=== PATIENT | female | born 1985 | race Caucasian/White ===

== ENCOUNTER 2017-12-10 22:14 | Inpatient (IN) | payer OTHER ==
[~2017-12-10 22:14] MED LIST: Bupivacaine/Epinephrine 0.25% 30 ML VIAL ONE
[2017-12-10 22:43] VITALS: BMI 34.2
[2017-12-10] MEDS ORDERED: Promethazine HCl 25 MG/ML VIAL IM PRN (23:39)
[2017-12-10] MEDS ORDERED: Ondansetron HCl/PF 4 MG/2 ML Vial IVP PRN (23:39)
[2017-12-10] MEDS ORDERED: Acetaminophen 500 MG TAB PO PRN (23:39)
[2017-12-10] MEDS ORDERED: NS / Oxytocin 40 units/1000ml 1,000 ML IV SCH (23:45)
[2017-12-10] MEDS ORDERED: Lidocaine 1% (PF) 30 ML VIAL SC PRN (23:45)
[2017-12-10] MEDS ORDERED: NS w/ Oxytocin 10 units 500 ML IV SCH ×2 (23:45)
[2017-12-10] MEDS ORDERED: Misoprostol 100 MCG TAB PO SCH (23:45)
[2017-12-10] MEDS ORDERED: Misoprostol 200 MCG TAB RC PRN (23:45)
[2017-12-10] MEDS ORDERED: Penicillin G Potassium 5 MILL.UNITS in Sodium Chloride 0.9% 100 ML IVPB SCH (23:45)
[2017-12-10] MEDS ORDERED: Ibuprofen 800 MG TAB PO PRN (23:45)
[2017-12-10 23:56] LABS: Hemoglobin 12.8 g/dL (12.0-16.0); Mean Corpuscular HGB CONC 34.8 g/dL (32.0-36.0); Mean Corpuscular Hemoglobin 29.9 pg (27.0-31.0); Mean Platelet Volume 6.7 fL (7.4-10.4); Platelet Count 202 thou/uL (130-400); RBC Distribution Width 12.6 % (11.5-14.5); Red Blood Cell (RBC) Count 4.29 mill/uL (4.20-5.40); White Blood Cell (WBC) Count 8.4 thou/uL (4.8-10.8)
[2017-12-11 00:37] LABS: Syphilis Antibody Nonreactive (Nonreactive); Syphilis Antibody Index 0.05 S/CO (<1.00 Non-Reactive)
[2017-12-11 00:45] LABS: HBSAg Index 0.17 S/CO (0-0.99); Hep B Surf Ag Non-Reactive S/CO (NonReactive)
[2017-12-11] MEDS: Penicillin G 2.5 MILL.units 2.5 MILL.UNITS in Premix Bag 1 BAG IVPB SCH ×7 (00:55→20:10)
[2017-12-11] MEDS: Lactated Ringer's 1,000 ML IV SCH ×3 (01:33→12:05)
[2017-12-11] MEDS: Butorphanol Tartrate 1 MG/ML VIAL SLOW IVP PRN ×3 (04:33→10:18)
[2017-12-11] MEDS ORDERED: Misoprostol 100 MCG TAB ONE (05:32)
[2017-12-11] MEDS ORDERED: Misoprostol 100 MCG TAB PO SCH (05:45)
[2017-12-11] MEDS ORDERED: NS w/ Oxytocin 10 units 500 ML IV SCH (08:00)
--- NOTE | 2017-12-11 08:02 | PDOC.LDHP ---
Labor and Delivery H&P Chief complaint: loss of fluid HPI: Pt is a 32yo G1@ 38+ weeks here for PROM. Current gestational age (weeks): 38 Due date: 12/21/17 Grav: 1 Para: 0 Current complications: none Abnormal US findings: No Current medications: pre-christofer vitamins Previous surgical history: none Allergies/Adverse Reactions: Allergies Allergy/AdvReac Type Severity Reaction Status Date / Time No Known Allergies Allergy Unverified 12/10/17 22:35 Social history: none - Physical Exam Vital signs reviewed and normal: yes General: resting Heart: RRR Lungs: CTAB Abdomen: gravid Extremeties: no edema FHT: category 1 - Vaginal Exam Effacement: 90% Station: -2 - OB Labs Blood type: O RH: positive Antibody Screen: negative HIV: negative RPR: negative HEPSAg: negative 1 hour GCT: negative 3 hour GTT: WNL GBS: positive Urine drug screen: not done Rubella: immune - Assessment L&D Assessment: term rupture in membranes - Plan Plan: admit to L&D, labor augmentation if indicated, GBS antibiotic prophylaxis , informed consent obtained, anesthesia consult for pain management -: 32yo @ 38+ weeks w PROM, GBS positive. Cytotec x 2 doses, PCN given. Continue plan of care.
[2017-12-11] MEDS ORDERED: DISCONTINUE ALL PREVIOUS NARCOTICS FS SCH (11:00)
[2017-12-11] MEDS ORDERED: Lidocaine HCl/Epinephrine 5 ML AMPUL IJ ONE (11:23)
[2017-12-11] MEDS: Bupivacaine 0.75% 13.4 ML, fentaNYL Citrate/PF 400 MCG in Sodium Chloride 0.9% 78.6 ML EPIDURAL SCH ×2 (12:02→17:34)
[2017-12-11] MEDS ORDERED: Ondansetron HCl/PF 4 MG/2 ML Vial IVP PRN ×2 (12:06→23:12)
[2017-12-11] MEDS ORDERED: Lactated Ringer's 500 ML IV PRN (12:06)
[2017-12-11] MEDS ORDERED: Promethazine HCl 25 MG/ML VIAL IM PRN (12:06)
[2017-12-11] MEDS ORDERED: Acetaminophen 325 MG TAB PO PRN (12:06)
[2017-12-11] MEDS ORDERED: Eucerin (Mineral Oil/Petrolatum,White) 30 gm Jar TOP PRN (12:06)
[2017-12-11] MEDS ORDERED: diphenhydrAMINE 50 MG/ML VIAL IVP PRN (12:06)
[2017-12-11] MEDS ORDERED: Naloxone HCl 0.4 mg/ml Vial IVP PRN ×2 (12:06)
[2017-12-11] MEDS ORDERED: ePHEDrine/0.9% NaCl/PF SYRINGE 50 mg/10 ml SLOW IVP PRN (12:06)
[2017-12-11] MEDS ORDERED: Communication Order-Pharmacy FS SCH (12:15)
[2017-12-11] MEDS ORDERED: fentaNYL Citrate/PF 400 MCG, Bupivacaine 0.5% 20 ML in Sodium Chloride 0.9% 72 ML EPIDURAL SCH (12:15)
--- NOTE | 2017-12-11 13:58 | PDOC.LDPN ---
Labor & Delivery Progress Note - Subjective Subjective: comfortable - Objective Vital signs reviewed and normal: yes General: resting Dilation: 4 Effacement: 90% Station: -2 FHT: category 1, late decelerations (noted after epidural, resolved w resuscitative measures) - Assessment (1) 38 weeks gestation of Code(s): Z3A.38 - 38 WEEKS GESTATION OF Current Visit: Yes Status : Acute Plan: continue plan of care
[2017-12-11] MEDS ORDERED: Misoprostol 200 MCG TAB ONE (21:15)
--- NOTE | 2017-12-11 21:34 | PDOC.OPDEL ---
OB Operative/Delivery Note Delivery Dr/Surgeon: Dinesh Pre-Delivery Diagnosis: ruptured membrane Procedure/Post Delivery Dx: spontaneous vaginal delivery Weeks gestation: 38 Anesthesia: epidural - Findings A Sex: male - 1 min: 8 - 5 min: 9 - Additional Findings/Plan Placenta delivered: spontaneous Repaired Obstetrical Laceration: 1st degree (and bilateral labial laceration) Estimated blood loss: quant loss approx 800m Compilations/Other Findings: uterine atony, relieved w massage, pitocin and cytotec 1gm, fundus firms and lochia WNL after repair Post delivery plan: routine recovery
[2017-12-11] MEDS ORDERED: Misoprostol 100 MCG TAB VAG SCH (21:45)
[2017-12-11] MEDS ORDERED: Preparation H Ointment 28 GM TUBE PR PRN (23:12)
[2017-12-11] MEDS ORDERED: Milk Of Magnesia 30 ML UDCUP PO PRN (23:12)
[2017-12-11] MEDS ORDERED: Bisacodyl 10 MG SUPP PR PRN (23:12)
[2017-12-11] MEDS ORDERED: Acetaminophen/Codeine 30-300mg Tablet PO PRN ×2 (23:12)
[2017-12-11] MEDS ORDERED: Benzocaine/Menthol 20-0.5% 60 ML CAN TOP PRN (23:12)
[2017-12-11] MEDS ORDERED: diphenhydrAMINE 25 MG CAP PO PRN (23:12)
[2017-12-11] MEDS ORDERED: Lanolin Ointment 7 GM TUBE TOP PRN (23:12)
[2017-12-11] MEDS ORDERED: NS / Oxytocin 40 units/1000ml 1,000 ML IV SCH (23:12)
[2017-12-11] MEDS ORDERED: Ibuprofen 800 MG TAB PO SCH (23:30)
[2017-12-12] MEDS: Ibuprofen 800 MG TAB PO SCH ×3 (05:07→21:00)
[2017-12-12 06:15] LABS: Hemoglobin 11.2 g/dL (12.0-16.0); Mean Corpuscular HGB CONC 35.2 g/dL (32.0-36.0); Mean Corpuscular Hemoglobin 30.5 pg (27.0-31.0); Mean Corpuscular Volume 86.5 fL (78.0-98.0); Mean Platelet Volume 6.5 fL (7.4-10.4); Platelet Count 161 thou/uL (130-400); RBC Distribution Width 12.7 % (11.5-14.5); Red Blood Cell (RBC) Count 3.66 mill/uL (4.20-5.40); White Blood Cell (WBC) Count 12.2 thou/uL (4.8-10.8)
--- NOTE | 2017-12-12 08:12 | PDOC.PP ---
Post Progress Note Post Day #: 1 Subjective: doing well,nursing, min lochia PO intake tolerated: yes Flatus: yes Ambulation: yes Vital Signs (12 hours) Temp Pulse Resp BP 12/12/17 07:25 98.0 F 81 20 12/12/17 04:30 98.0 F 81 20 122/59 L 12/12/17 00:30 98.9 F 82 18 109/56 L Weight Weight 206 lb - Physical Examination General: NAD Respiratory: non-labored breathing Abdominal: lochia (normal), no distention Fundus firm & at: below umb Extremities: negative homans (B) Skin: no rash Neurological: no gross focal deficits Psychiatric: A&Ox3, normal affect Result Diagrams: 12/12/17 06:00 Additional Labs: Post Labs Blood Type O POSITIVE 12/10/17 23:44 Hep Bs Antigen Non-Reactive S/CO (NonReactive) 12/10/17 23:44 (1) 38 weeks gestation of Code(s): Z3A.38 - 38 WEEKS GESTATION OF Status: Acute - Assessment/Plan PPD1 sp w EBL 800ml/uterine atony but hgb this AM 11 and normal PP lochia. Anticipate DC tomorrow.
[2017-12-12] MEDS: Ferrous Sulfate 325 MG TAB PO SCH ×2 (08:34→16:46)
[2017-12-12] MEDS: Docusate Calcium (SURFAK) 240 MG CAP PO SCH ×2 (08:34→20:59)
[2017-12-12] MEDS: Prenatal Vitamin 1 TAB PO SCH (08:34)
[2017-12-12] MEDS ORDERED: Adacel (T-DAP) 0.5 ML VIAL IM ONE (09:00)
[2017-12-13] MEDS: Ibuprofen 800 MG TAB PO SCH ×2 (05:53→13:59)
[2017-12-13 08:13] VITALS: BP 108/65; TEMP 97.9
--- NOTE | 2017-12-13 08:39 | PDOC.PP ---
Post Progress Note Post Day #: 2 Subjective: nursing well, no concerns PO intake tolerated: yes Flatus: yes Ambulation: yes Vital Signs (12 hours) Temp Pulse Resp BP 12/13/17 08:00 97.9 F 71 18 108/65 12/13/17 07:50 97.9 F 71 18 Weight Weight 206 lb - Physical Examination General: NAD Respiratory: non-labored breathing Abdominal: no distention Extremities: negative homans (B) Skin: no rash Neurological: no gross focal deficits Psychiatric: A&Ox3, normal affect Result Diagrams: 12/12/17 06:00 Additional Labs: Post Labs Blood Type O POSITIVE 12/10/17 23:44 Hep Bs Antigen Non-Reactive S/CO (NonReactive) 12/10/17 23:44 (1) 38 weeks gestation of Code(s): Z3A.38 - 38 WEEKS GESTATION OF Status: Acute - Assessment/Plan PPD2 doing well, plan for DC today.
[2017-12-13] MEDS: Ferrous Sulfate 325 MG TAB PO SCH (09:03)
[2017-12-13] MEDS: Prenatal Vitamin 1 TAB PO SCH (09:51)
[2017-12-13] MEDS: Docusate Calcium (SURFAK) 240 MG CAP PO SCH (09:51)
== END 2017-12-13 16:30 | disposition home or self-care (01) | DRG 775 ==
LOC: L&D/OP 22:14 → L&D 23:33 → 3SW 12-12 00:16
PROVIDERS: ADMIT Obstetrics & Gynecology; ATTEND Obstetrics & Gynecology
PROC: 10E0XZZ Delivery of Products of Conception, External Approach (ICD-10-PCS; principal; 2017-12-11)
PROC: 0HQ9XZZ Repair Perineum Skin, External Approach (ICD-10-PCS; 2017-12-11)
DX: O70.0 First degree perineal laceration during delivery (principal); O99.824 Streptococcus B carrier state complicating childbirth; Z3A.38 38 weeks gestation of pregnancy; Z37.0 Single live birth; O75.89 Other specified complications of labor and delivery
CPT/HCPCS: 36415; 51702; 85027; 86780; 86850; 86900; 86901; 87340; 99285; J0595; J2540; J3010; J3490; J7050

== ENCOUNTER 2020-06-19 08:25 | Outpatient (CLI) | payer OTHER ==
[2020-06-19 18:22] LABS: SARS-CoV-2 PCR by NAA Not Detected (NotDetected)
== END 2020-06-19 08:26 | disposition home or self-care (01) ==
LOC: LABBT 08:25
PROVIDERS: ATTEND Obstetrics & Gynecology
DX: Z01.812 Encounter for preprocedural laboratory examination (principal); Z20.822 Contact with and (suspected) exposure to COVID-19
CPT/HCPCS: 87635; U0003; U0005

== ENCOUNTER 2020-06-22 05:53 | Inpatient (IN) | payer OTHER ==
[2020-06-22 06:36] VITALS: BMI 33.9
[2020-06-22] MEDS ORDERED: Promethazine HCl 25 MG/ML VIAL IM PRN ×2 (07:00→11:14)
[2020-06-22] MEDS ORDERED: HYDROcodone/Acetaminophen 5/325 mg Tablet PO PRN ×4 (07:00→17:20)
[2020-06-22] MEDS ORDERED: Ondansetron PF 4 MG/2 ML Vial IVP PRN ×3 (07:00→17:20)
[2020-06-22] MEDS ORDERED: Lidocaine 1% (PF) 30 ML VIAL SC PRN (07:00)
[2020-06-22] MEDS ORDERED: Ibuprofen 800 MG TAB PO PRN (07:00)
[2020-06-22] MEDS ORDERED: NS w/ Oxytocin 30 units 500 ML IV PRN (07:00)
[2020-06-22] MEDS ORDERED: Meperidine HCl/PF 25 MG/ML VIAL IM/IV PRN (07:00)
[2020-06-22] MEDS ORDERED: Butorphanol Tartrate 1 MG/ML VIAL SLOW IVP PRN (07:00)
[2020-06-22] MEDS ORDERED: hydrALAZINE 20 MG/ML VIAL SLOW IVP PRN ×2 (07:00→17:20)
[2020-06-22 07:32] LABS: Mean Corpuscular HGB CONC 34.1 g/dL (32.0-36.0); Mean Corpuscular Hemoglobin 29.8 pg (27.0-31.0); Mean Corpuscular Volume 87.4 fL (78.0-98.0); Mean Platelet Volume 7.3 fL (7.4-10.4); Platelet Count 193 thou/uL (130-400); RBC Distribution Width 12.7 % (11.5-14.5); Red Blood Cell (RBC) Count 4.35 mill/uL (4.20-5.40); White Blood Cell (WBC) Count 9.7 thou/uL (4.8-10.8)
[2020-06-22 08:10] LABS: HBSAg Index 0.24 S/CO (0-0.99); Hep B Surf Ag Non-Reactive S/CO (NonReactive); Syphilis Antibody Nonreactive (Nonreactive); Syphilis Antibody Index 0.04 S/CO (<1.00 Non-Reactive)
[2020-06-22] MEDS ORDERED: Fentanyl 4 mcg/Bup 0.1% Cadd 100 ML ONE (09:41)
[2020-06-22] MEDS ORDERED: Lactated Ringer's 500 ML IV PRN (11:14)
[2020-06-22] MEDS ORDERED: Naloxone HCl 0.4 mg/ml Vial IVP PRN ×2 (11:14)
[2020-06-22] MEDS ORDERED: Acetaminophen 325 MG TAB PO PRN (11:14)
[2020-06-22] MEDS ORDERED: ePHEDrine 50 MG/ML VIAL SLOW IVP PRN (11:14)
[2020-06-22] MEDS ORDERED: diphenhydrAMINE 50 MG/ML VIAL IVP PRN (11:14)
[2020-06-22] MEDS ORDERED: Fentanyl 4 mcg/Bupivacaine 0.1% Cassette 100 ML EPIDURAL SCH (11:15)
[2020-06-22] MEDS ORDERED: Communication Order-Pharmacy FS PRN (11:15)
[2020-06-22] MEDS: Lactated Ringer's 1,000 ML IV SCH ×2 (11:17→14:36)
[2020-06-22] MEDS ORDERED: Bupivacaine 0.25% HCL 30 ML VIAL ONE (12:06)
--- NOTE | 2020-06-22 13:21 | PDOC.LDPN ---
Labor & Delivery Progress Note - Subjective Subjective: comfortable - Objective Vital signs reviewed and normal: yes General: NAD Dilation: 5 Effacement: 90% Station: -1 FHT: category 1 [place] contractions every: 2 AROM: clear fluid (on admit exam this AM) - Assessment (1) 40 weeks gestation of Code(s): Z3A.40 - 40 WEEKS GESTATION OF Current Visit: Yes Status: Acute Plan: continue plan of care
[2020-06-22] MEDS ORDERED: Lidocaine 1% (PF) 30 ML VIAL ONE (14:16)
--- NOTE | 2020-06-22 15:37 | PDOC.OPDEL ---
OB Operative/Delivery Note Delivery Dr/Surgeon: Dinesh Pre-Delivery Diagnosis: elective induction Procedure/Post Delivery Dx: spontaneous vaginal delivery Weeks gestation: 40 Anesthesia: epidural - Findings A Sex: female - 1 min: 9 - 5 min: 9 - Additional Findings/Plan Placenta delivered: spontaneous Repaired Obstetrical Laceration: none Estimated blood loss: 100ml Post delivery plan: routine recovery
[2020-06-22] MEDS ORDERED: Lanolin Ointment 7 GM TUBE TOP PRN (17:20)
[2020-06-22] MEDS ORDERED: Preparation H Ointment 28 GM TUBE PR PRN (17:20)
[2020-06-22] MEDS ORDERED: Milk Of Magnesia 30 ML UDCUP PO PRN (17:20)
[2020-06-22] MEDS ORDERED: diphenhydrAMINE 25 MG CAP PO PRN (17:20)
[2020-06-22] MEDS ORDERED: Benzocaine-Menthol 82.5 ML CAN TOP PRN (17:20)
[2020-06-22] MEDS ORDERED: Bisacodyl 10 MG SUPP PR PRN (17:20)
[2020-06-22] MEDS ORDERED: NS w/ Oxytocin 30 units 500 ML IVPB SCH (17:30)
[2020-06-22] MEDS: Docusate Calcium (SURFAK) 240 MG CAP PO SCH (20:00)
[2020-06-22] MEDS: Ibuprofen 800 MG TAB PO SCH (20:00)
[2020-06-23] MEDS ORDERED: Simethicone Chewable 80 MG TAB PO PRN (00:33)
[2020-06-23] MEDS: Ibuprofen 800 MG TAB PO SCH ×2 (05:05→14:02)
--- NOTE | 2020-06-23 07:59 | PDOC.PP ---
Post Progress Note Post Day #: 1 Subjective: doing well, latching well, minimal lochia, requests DC if baby DC PO intake tolerated: yes Flatus: yes Ambulation: yes Vital Signs (12 hours) Temp Pulse Resp BP Pulse Ox 06/23/20 05:55 97.9 F 60 16 113/67 06/23/20 00:27 98.5 F 71 16 111/69 06/22/20 20:10 97.8 F 77 18 117/72 98 Weight Weight 204 lb - Physical Examination General: NAD Respiratory: non-labored breathing Abdominal: no distention Fundus firm & at: below umb Psychiatric: A&Ox3, normal affect Result Diagrams: 06/22/20 07:42 Additional Labs: Post Labs Hep Bs Antigen Non-Reactive S/CO (NonReactive) 06/22/20 07:00 Blood Type O POSITIVE 06/22/20 07:04 (1) 40 weeks gestation of Code(s): Z3A.40 - 40 WEEKS GESTATION OF Status: Acute (2) Vaginal delivery Code(s): O80 - ENCOUNTER FOR FULL-TERM UNCOMPLICATED DELIVERY Status: Acute - Assessment/Plan PPD 1 doing well, DC home today if baby DC.
[2020-06-23] MEDS ORDERED: Ferrous Sulfate 325 MG TAB PO SCH (08:00)
[2020-06-23 08:05] VITALS: TEMP 98
[2020-06-23] MEDS: Docusate Calcium (SURFAK) 240 MG CAP PO SCH (08:26)
[2020-06-23] MEDS ORDERED: Prenatal Vitamin 1 TAB PO SCH (09:00)
[2020-06-23] MEDS ORDERED: Adacel (T-DAP) 0.5 ML SYRINGE IM ONE (09:00)
[2020-06-23 12:02] VITALS: BP 106/62
== END 2020-06-23 17:45 | disposition home or self-care (01) | DRG 807 ==
LOC: L&D 05:53 → 3SW 17:57
PROVIDERS: ADMIT Obstetrics & Gynecology; ATTEND Obstetrics & Gynecology
PROC: 10E0XZZ Delivery of Products of Conception, External Approach (ICD-10-PCS; principal; 2020-06-22)
PROC: 10907ZC Drainage of Amniotic Fluid, Therapeutic from Products of Conception, Via Natural or Artificial Opening (ICD-10-PCS; 2020-06-22)
DX: O80 Encounter for full-term uncomplicated delivery (principal); Z37.0 Single live birth; Z3A.40 40 weeks gestation of pregnancy; Z20.822 Contact with and (suspected) exposure to COVID-19
CPT/HCPCS: 51702; 85027; 86780; 86850; 86900; 86901; 87340; 87635; J2590; S0020; U0003; U0005